=== PATIENT | female | born 1985 | race Caucasian/White ===

== ENCOUNTER 2019-06-18 10:25 | Emergency (ER) | payer OTHER ==
[~2019-06-18] VITALS: Ht 170.2 cm; Wt 118.8 kg
[2019-06-18 10:31] VITALS: Ht 170.2 cm; Wt 118.8 kg
[2019-06-18 11:05] LABS: BASOPHIL % 0.9 % (0-2); PLATELET COUNT 291 x10^3mcL (130-400); RED CELL DISTRIBUTION WIDTH 13.2 % (11.5-14.5)
[2019-06-18 11:11] LABS: CARBON DIOXIDE 20.3 mmol/L (21-32); CHLORIDE SERUM 106 mmol/L (98-107); CREATININE SERUM 0.9 mg/dL (0.6-1.0); GFR1 > 60 mL/min; GLUCOSE SERUM 102 mg/dL (74-106); POTASSIUM SERUM 3.5 mmol/L (3.5-5.1); SODIUM SERUM 141 mmol/L (136-145)
[2019-06-18 11:22] LABS: ALKALINE PHOSPHATASE 94 U/L (46-116); ALT/SGPT 26 U/L (14-59); AST/SGOT 11 U/L (15-37); BILIRUBIN TOTAL 0.73 mg/dL (0.20-1.00); CHOLESTEROL 149 mg/dL (<200); HDL CHOLESTEROL 49 mg/dL (40-60); LIPASE 115 IU/L (73-393); T4(THYROXINE) 10.3 ug/dL (4.7-13.3); TOTAL PROTEIN, SERUM 7.2 g/dL (6.4-8.2)
[2019-06-18 11:27] LABS: ALBUMIN 3.3 g/dL (3.4-5.0)
[2019-06-18 12:54] LABS: UA SPECIFIC GRAVITY >=1.030 (1.005-1.035); microscopic required? YES; urine erythrocyte 2+ (NEGATIVE)
[2019-06-18 13:10] LABS: AMPHETAMINE QUAL UR NONE DETECTED (See below)
[2019-06-18 13:31] VITALS: BP 147/95
== END 2019-06-18 13:30 | disposition home or self-care (01) ==
LOC: ED 10:25
PROVIDERS: Emergency Medicine
DX: M79.10 Myalgia, unspecified site (principal); R11.2 Nausea with vomiting, unspecified; I10 Essential (primary) hypertension; E66.01 Morbid (severe) obesity due to excess calories; Z68.41 Body mass index [BMI] 40.0-44.9, adult; Z90.89 Acquired absence of other organs; Z90.49 Acquired absence of other specified parts of digestive tract
CPT/HCPCS: 87804; J1885; J2060; J7030